=== PATIENT | male | born 1985 | race Caucasian/White ===

== ENCOUNTER 2025-06-18 17:26 | Emergency (ER) | payer MEDICAID ==
[~2025-06-18] VITALS: Ht 167.6 cm; Wt 82.0 kg
[2025-06-18 17:30] VITALS: O2SAT 97
[2025-06-18] MEDS: LIDOCAINE HCL 1% 20ML VIAL INFIL STA (17:35)
[2025-06-18 19:44] VITALS: BP 124/85; PULSE 95; RESP 18; TEMP 37.1; O2SAT 98
== END 2025-06-18 19:45 | disposition home or self-care (01) ==
LOC: ER 17:26
DX: S62.616A Displaced fracture of proximal phalanx of right little finger, initial encounter for closed fracture (principal); V19.3XXA Pedal cyclist (driver) (passenger) injured in unspecified nontraffic accident, initial encounter; Y93.89 Activity, other specified; Y92.89 Other specified places as the place of occurrence of the external cause; Y99.8 Other external cause status
CPT/HCPCS: 73130; 26725; 99284; J2003; Z7610